=== PATIENT | male | born 2000 | race Caucasian/White ===

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

== ENCOUNTER → 2023-02-23 | Outpatient (CLI) | payer BC ==
--- NOTE | 2023-02-23 14:58 | US ---
EXAMINATION TYPE: US bladder DATE OF EXAM: 02/23/2023 COMPARISON: NONE CLINICAL INDICATION: Male, 22 years old with history of R35.0; Pt states waking up multiple times at night to urinate, pt also states at times feels like he cannot fully empty bladder TECHNIQUE: Multiple sonographic images of the bladder are obtained. FINDINGS: EXAM MEASUREMENTS: Post Void Residual Volume: 87 mL [employer] NOTES: Color Doppler performed to assess ureteral jets. Bilateral Jets seen: Yes Normal Post Void Residual (less than 50ml): No Anechoic appearance of the urinary bladder. No wall thickening or intraluminal mass identified. Abnor mal post void residual 87 mL. IMPRESSION: 1. No intraluminal mass or abnormal wall thickening or bladder. 2. Nonspecific abnormal post void residual of 87 mL.
== END | disposition home or self-care (01) ==
LOC: RADUSWWP 14:14
PROVIDERS: ATTEND Family Medicine
DX: R35.0 Frequency of micturition (principal)
CPT/HCPCS: 76857